=== PATIENT | male | born 1995 | race Caucasian/White ===

== ENCOUNTER 2017-06-30 21:24 | Emergency (ER) | payer BC, OTHER ==
[~2017-06-30] VITALS: Ht 182.9 cm; Wt 80.9 kg
[2017-06-30 21:29] VITALS: BP 129/65; TEMP 36.7; Ht 182.9 cm; Wt 80.9 kg
[2017-06-30 22:15] VITALS: PULSE 72; O2SAT 98
--- NOTE | 2017-06-30 23:01 | EMERGENCY ROOM VISIT NOTE ---
History First contact with patient: 21:44 Chief Complaint: HEAD INJURY (MINOR) Stated Complaint: HEADACHE, NAUSEA,DIZZINESS AFTER BEING HIT IN HEAD History of Present Illness The patient is a 22 year old male who presents to the Emergency Room with complaints of injuries tonight playing basketball. The patient reports that he was accidentally hit in the head with a forearm. The patient denies any loss of consciousness. He did immediately develop a generalized headache, nausea, blurred vision, tinnitus and fatigue. He reports that his symptoms have somewhat improved, but still rates his headache a 5 out of 10. The patient denies any back pain or back pain. He denies falling to the ground. The patient has had no prior history of concussions. Review of Systems 10 system review was performed and was negative except for pertinent positives and negatives as indicated in history of present illness Past Medical/Surgical History Medical Problems: (1) No significant past medical history Surgical Problems: (1) No history of previous surgery Family History FH: cancer FH: diabetes mellitus FH: heart disease FH: hypertension FH: kidney disease FH: lung disease Social History Smoking Status: Never Smoker Alcohol Use: none Marital Status: single Housing Status: lives with friends Occupation Status: student Physical Exam Vital Signs Date Time Temp Pulse Resp B/P (MAP) Pulse Ox O2 Delivery O2 Flow Rate FiO2 06/30/17 22:15 72 18 98 06/30/17 21:30 18 06/30/17 21:29 36.7 76 18 129/65 100 Room Air Physical Exam CONSTITUTIONAL: Healthy and well nourished. Alert and oriented X 3 with positive affect. GCS 15. Patient does not appear in any acute distress. HEENT: Examination shows mild edema of the left proximal forearm/scalp region. No hematoma, abrasions or lacerations. Pupils equal, round and reactive. No subconjunctival hemorrhage, hemotympanum, epistaxis, raccoon's eyes or avila sign. NECK: Full active range of motion without discomfort. RESPIRATORY: Clear to auscultation bilaterally with no wheezing, crackles, rhonchi or stridor. CARDIOVASCULAR: Regular rate and rhythm with no murmurs, rubs or gallops. MUSCULOSKELETAL: Full range of motion of all joints without discomfort. INTEGUMENTARY: No rash or other significant dermatologic conditions noted. NEUROLOGIC: Cranial nerves II-XII grossly intact. No focal neurologic deficits noted. Normal finger to nose test. Negative pronator drift. No ataxia with ambulation. Negative Romberg sign. Medical Decision & Procedures ED Course Patient history and physical exam were performed. Nurse's notes were reviewed. Vital signs were reviewed and were normal. The patient does not appear in any acute distress. His clinical and neurologic exam are normal. The patient reports that his symptoms are improving at this point. I did offer to perform a CT, but the patient and father elected to defer radiation exposure. I did recommend that the patient return to the emergency department for any progressively worsening symptoms. He was encouraged to avoid NSAIDs for now, and take Tylenol as needed for pain. The patient refused any prescription antiemetics. He was instructed to refrain from physical activities for the next week. Follow-up with family doctor if symptoms are not improving within the next week. The patient and father were happy with plan of care, voiced understanding of all discharge instructions, and the patient rated his overall discomfort a 5 out of 10 at the conclusion of my exam. Medical Decision Head Trauma GCS Score: 15 Medication Reconcilliation Current Medication List: was personally reviewed by me Blood Pressure Screening Patient's blood pressure: Normal blood pressure Impression Primary Impression: Concussion Departure Information Dispostion Home / Self-Care Referrals No Doctor, Assigned Forms HOME CARE DOCUMENTATION FORM, IMPORTANT VISIT INFORMATION Patient Instructions Concussion, My [facility] [employer] Additional Instructions Read concussion handout. Limit strenuous activities until all concussion symptoms resolved. Avoid ibuprofen/Motrin/Aleve/naproxen for now. Take Tylenol 1000 mg every 6-8 hours as needed for pain. Follow-up with your family doctor if symptoms are not improving within the next week. Return to the emergency department for any progressively worsening symptoms. Problem Qualifiers Primary Impression: Concussion Encounter type: initial encounter Loss of consciousness presence/duration: without LOC Qualified Codes: S06.0X0A - Concussion without loss of consciousness, initial encounter
== END 2017-06-30 22:30 | disposition home or self-care (01) ==
LOC: C.EDB 21:26 → C.EDD 22:30
DX: S06.0X0A Concussion without loss of consciousness, initial encounter (principal); W50.0XXA Accidental hit or strike by another person, initial encounter; Y93.67 Activity, basketball; R40.2412 Glasgow coma scale score 13-15, at arrival to emergency department; Z83.3 Family history of diabetes mellitus; Z82.49 Family history of ischemic heart disease and other diseases of the circulatory system; Z84.1 Family history of disorders of kidney and ureter; Z83.6 Family history of other diseases of the respiratory system